=== PATIENT | female | born 1985 | race Caucasian/White ===

== ENCOUNTER 2018-12-09 13:34 | Emergency (ER) | payer OTHER ==
[~2018-12-09] VITALS: Ht 165.1 cm; Wt 60.3 kg
[2018-12-09 13:38] VITALS: BP 120/56
--- NOTE | 2018-12-09 13:52 | NUR ---
C/O INTERMITENT RIGHT LOWER ABDOMINAL PAIN X 3 WEEKS. LAST BM NORMAL THIS AM. AMBULATES TO BED 9. URINE SPECEMIN COLLECTED. RESULTS GIVEN TO MD PEARCE HX:ANEMIA, C SECTION X 2 MED : NONE
[2018-12-09] MEDS ORDERED: KETOROLAC 60 MG/2 ML VIAL IM ONE (14:09)
--- NOTE | 2018-12-09 14:31 | NUR ---
PT REFUSING TORADOL INJECTION AT THIS TIME.
[2018-12-09] MEDS: KETOROLAC 60 MG/2 ML VIAL IM ONE (14:32)
[2018-12-09 14:34] LABS: BASOPHILS % (AUTO) 0.4 % (0.0-2.0); EOSINOPHILS # (AUTO) 0.1 K/uL (0-0.4); EOSINOPHILS % (AUTO) 1.5 % (0.0-4.0); HEMATOCRIT 35.2 % (36-48); HEMOGLOBIN 11.4 g/dL (12.0-16.0); LYMPHOCYTES # (AUTO) 1.8 K/uL (2.5-16.5); LYMPHOCYTES % (AUTO) 27.5 % (20.5-51.1); MEAN CORPUSCULAR HEMOGLOBIN 28 pg (27-31); MEAN CORPUSCULAR HGB CONC 33 g/dL (33-37); MEAN CORPUSCULAR VOLUME 86.1 fL (80-94); MONOCYTES # (AUTO) 0.4 K/uL (0.8-1.0); MONOCYTES % (AUTO) 6.4 % (1.7-9.3); NEUTROPHILS # (AUTO) 4.1 K/uL (1.8-7.7); NEUTROPHILS % (AUTO) 64.2 % (42.2-75.2); PLATELET COUNT (AUTO) 235 K/uL (140-450); RED BLOOD CELL COUNT(AUTO) 4.09 MIL/uL (4.20-5.40); RED CELL DISTRIBUTION WIDTH 13.7 % (11.6-13.7); WHITE BLOOD COUNT (AUTO) 6.4 K/uL (4.8-10.8)
[2018-12-09 14:35] LABS: APPEARANCE,URINE CLEAR (CLEAR); BILIRUBIN,URINE NEGATIVE (NEGATIVE); BLOOD, URINE 1+ (NEGATIVE); COLOR,URINE YELLOW (YELLOW); LEUKOCYTE ESTERASE ,URINE NEGATIVE (NEGATIVE); NITRITE, URINE NEGATIVE (NEGATIVE); PH,URINE 5.5 (5.0-9.0); UGLUCOSE NEGATIVE (NEGATIVE)
[2018-12-09 16:08] VITALS: BP 106/67
--- NOTE | 2018-12-09 16:08 | NUR ---
Patient discharged with v/s stable. Written and verbal after care instructions given and explained. Patient alert, oriented and verbalized understanding of instructions. Ambulatory with steady gait. All questions addressed prior to discharge. ID band removed. Patient advised to follow up with PMD. Rx of CARINA AND CARRINGTON given. Patient educated on indication of medication including possible reaction and side effects. Opportunity to ask questions provided and answered.
== END 2018-12-09 16:08 | disposition home or self-care (01) ==
LOC: MED 13:34
DX: N83.201 Unspecified ovarian cyst, right side (principal); Z98.890 Other specified postprocedural states
CPT/HCPCS: 36415; 76830; 81003; 85025; 99284; Q0092; J1885

== ENCOUNTER 2018-12-14 01:40 | Emergency (ER) | payer OTHER ==
[~2018-12-14] VITALS: Ht 165.1 cm; Wt 60.8 kg
[2018-12-14 01:53] VITALS: BP 110/72
--- NOTE | 2018-12-14 02:02 | NUR ---
AFTER DENICEIGE PT STATED "I FEEL BETTER. I THINK I'LL JUST GO SEE MY DOCTOR IN THE MORNING." PATIENT LEFT WITHOUT BEING SEEN BY DR. BRITTON. NO FURTHER CARE PROVIDED FOR PATIENT.
--- NOTE | 2018-12-14 02:02 | NUR ---
Jaxon augustorlin in ED - 12/14/18 at 0208 by BILLY AFTER HARRIETT PT STATED "I FEEL BETTER. I THINK I'LL JUST GO SEE MY DOCTOR IN THE MORNING." AFTER HARRIETT PT STATED "I FEEL BETTER. I THINK I'LL JUST GO SEE MY DOCTOR IN THE MORNING." PATIENT LEFT WITHOUT BEING SEEN BY DR. BRITTON. NO FURTHER CARE PROVIDED FOR PATIENT.
== END 2018-12-14 02:02 | disposition left against medical advice (07) ==
LOC: MED 01:40
DX: R11.0 Nausea (principal); Z88.0 Allergy status to penicillin; Z53.21 Procedure and treatment not carried out due to patient leaving prior to being seen by health care provider

== ENCOUNTER 2023-05-19 20:43 | Emergency (ER) | payer OTHER ==
[~2023-05-19] VITALS: Ht 162.6 cm; Wt 68.0 kg
[2023-05-19 21:09] VITALS: BP 96/71; PULSE 82; RESP 16; TEMP 97.1; O2SAT 99
== END 2023-05-19 22:06 | disposition home or self-care (01) ==
LOC: MED 20:43
DX: J32.9 Chronic sinusitis, unspecified (principal); Z79.899 Other long term (current) drug therapy
CPT/HCPCS: 99282

== ENCOUNTER 2023-08-27 19:55 | Emergency (ER) | payer OTHER ==
[~2023-08-27] VITALS: Ht 165.1 cm; Wt 70.3 kg
[2023-08-27 20:20] VITALS: BP 125/80; PULSE 78; RESP 16; TEMP 98.1; O2SAT 98
[2023-08-27 20:24] VITALS: BP 125/80; PULSE 79; RESP 16; TEMP 98.1; O2SAT 99
[2023-08-27 21:13] LABS: APPEARANCE,URINE CLEAR (CLEAR); BILIRUBIN,URINE NEGATIVE (NEGATIVE); BLOOD, URINE 1+ (NEGATIVE); COLOR,URINE YELLOW (YELLOW); LEUKOCYTE ESTERASE ,URINE NEGATIVE (NEGATIVE); NITRITE, URINE NEGATIVE (NEGATIVE); PH,URINE 6.5 (5.0-9.0); PROTEIN,URINE NEGATIVE (NEGATIVE); UGLUCOSE NEGATIVE (NEGATIVE); UROBILINOGEN,URINE 0.2 EU/dL (0.2 - 1)
[2023-08-27] MEDS: KETOROLAC 30 MG/ML VIAL IM ONE (21:23)
[2023-08-27] MEDS: ACETAMINOPHEN 325 MG TAB PO ONE (21:29)
[2023-08-27 21:54] LABS: BASOPHILS % (AUTO) 0.1 % (0.0-2.0); EOSINOPHILS # (AUTO) 0.1 K/uL (0-0.4); EOSINOPHILS % (AUTO) 2.2 % (0.0-4.0); HEMATOCRIT 37.9 % (36-48); HEMOGLOBIN 12.5 g/dL (12.0-16.0); LYMPHOCYTES # (AUTO) 1.8 K/uL (2.5-16.5); LYMPHOCYTES % (AUTO) 26.9 % (20.5-51.1); MEAN CORPUSCULAR HEMOGLOBIN 28 pg (27-31); MEAN CORPUSCULAR HGB CONC 33 g/dL (33-37); MEAN CORPUSCULAR VOLUME 84.7 fL (80-94); MONOCYTES # (AUTO) 0.5 K/uL (0.8-1.0); MONOCYTES % (AUTO) 7.8 % (1.7-9.3); NEUTROPHILS # (AUTO) 4.2 K/uL (1.8-7.7); PLATELET COUNT (AUTO) 227 K/uL (140-450); RED BLOOD CELL COUNT(AUTO) 4.48 MIL/uL (4.20-5.40); RED CELL DISTRIBUTION WIDTH 14.8 % (11.6-13.7); WHITE BLOOD COUNT (AUTO) 6.6 K/uL (4.8-10.8)
[2023-08-27 22:29] LABS: ANION GAP 12.6 (8-16); CALCIUM 8.9 mg/dL (8.5-10.1); CARBON DIOXIDE 28.1 mmol/L (21-32); CREATININE 0.6 mg/dL (0.6-1.3); POTASSIUM 3.7 mmol/L (3.5-5.1)
[2023-08-27 22:46] LABS: ALBUMIN 3.6 g/dL (3.4-5.0); BILIRUBIN,DIRECT 0.1 mg/dL (0.0-0.3); THYROID STIMULATING HORMONE 2.08 uIU/mL (0.34-3.74); TOTAL BILIRUBIN 0.2 mg/dL (0.0-1.0)
[2023-08-27] MEDS ORDERED: IBUP-2213 PO (23:42)
== END 2023-08-27 23:54 | disposition home or self-care (01) ==
LOC: MED 19:55
DX: N83.202 Unspecified ovarian cyst, left side (principal); R10.30 Lower abdominal pain, unspecified; Z79.1 Long term (current) use of non-steroidal anti-inflammatories (NSAID); Z88.1 Allergy status to other antibiotic agents
CPT/HCPCS: 36415; 76856; 80048; 80076; 81003; 81025; 83690; 84443; 85025; 99284; J1885